=== PATIENT | male | born 1970 | race Caucasian/White ===

== ENCOUNTER 2025-01-02 20:17 | Emergency (ER) | payer BC ==
[~2025-01-02] VITALS: Ht 185.4 cm; Wt 93.0 kg
[2025-01-02] MEDS ORDERED: ONDANSETRON HCL/PF 4 MG/2 ML VIAL ONE (20:42)
[2025-01-02] MEDS: IV NS 0.9% 1,000 ML BAG IV ONE (20:51)
[2025-01-02] MEDS ORDERED: KETOROLAC TROMETHAMINE INJ 30 MG/ML VIAL ONE (20:52)
[2025-01-02] MEDS ORDERED: PANTOPRAZOLE 40 MG VIAL ONE (20:52)
[2025-01-02] MEDS: ONDANSETRON HCL/PF 4 MG/2 ML VIAL IVP ONE (20:52)
[2025-01-02] MEDS: KETOROLAC TROMETHAMINE 15 MG/ML VIAL IV ONE (20:58)
[2025-01-02 20:59] LABS: PLATELET COUNT (AUTO) 249 K/uL (150-450); RED BLOOD CELL COUNT(AUTO) 6.00 MIL/uL (4.5-6.0); RED CELL DISTRIBUTION WIDTH 14.1 % (11.5-15.0); WHITE BLOOD COUNT (AUTO) 15.8 K/uL (4.3-11.0)
[2025-01-02] MEDS: PANTOPRAZOLE 40 MG VIAL IV ONE (21:09)
[2025-01-02 21:12] LABS: ASPARTATE AMINOTRANSFERASE 24.0 U/L (15-37); CALCIUM, SERUM 10.0 mg/dL (8.5-10.1); CREATININE 1.3 mg/dL (0.6-1.3); SODIUM SERUM 136.0 mmol/L (136-145); TOTAL PROTEIN, SERUM 7.1 g/dL (6.4-8.2); UREA NITROGEN, BLOOD 21.0 mg/dL (7-18)
[2025-01-02] MEDS ORDERED: HALOPERIDOL LACTATE INJ 5 MG/ML VIAL ONE (21:25)
[2025-01-02] MEDS ORDERED: MORPHINE SULFATE INJ 4 MG/ML DISP.SYRIN ONE ×2 (21:25→21:29)
[2025-01-02] MEDS: MORPHINE SULFATE INJ 2 MG/ML DISP.SYRIN IV ONE (21:32)
[2025-01-02] MEDS: HALOPERIDOL LACTATE INJ 5 MG/ML VIAL IV ONE (21:32)
[2025-01-02] MEDS ORDERED: ONDA4TAB11 PO (21:56)
[2025-01-02 22:22] VITALS: BP 129/97; TEMP 98.6; O2SAT 96
== END 2025-01-02 22:22 | disposition home or self-care (01) ==
LOC: ER 20:22
DX: K52.9 Noninfective gastroenteritis and colitis, unspecified (principal); Z60.2 Problems related to living alone
CPT/HCPCS: 99284; 96374; 96375; 96361; 85025; 80048; 83690; 80076; 36415; J1885; J1630; J2270 ×2; J2405; J7030; J2470